=== PATIENT | female | born 2000 | race American Indian/Alaskan Native ===

== ENCOUNTER 2021-03-11 22:32 | Emergency (ER) | payer SELFPAY ==
[2021-03-11] MEDS ORDERED: TETANUS,DIPH,PERTUSS(ACELL) VACCINE 0.5 ML SYRINGE IM ONE (23:04)
[2021-03-11] MEDS ORDERED: IBUPROFEN 600 MG TAB PO ONE (23:04)
[2021-03-11] MEDS ORDERED: LIDOCAINE-MPF (1%) 10 MG/1 ML VIAL 5 ML INFILTRATI ONE (23:05)
--- NOTE | 2021-03-11 23:26 | XRay Report ---
LEFT FOOT 3 VIEWS INDICATION / CLINICAL INFORMATION: laceration COMPARISON: None available. FINDINGS: BONES / JOINT(S): No acute fracture or subluxation. No significant arthritis. SOFT TISSUES: Soft tissue injury at the dorsum of the foot distally. No radiopaque foreign body. ADDITIONAL FINDINGS: None. Signer Name: Mervin Baker MD Signed: 03/11/2021 11:21 PM Workstation Name: [id number]
[2021-03-12] MEDS ORDERED: ONDANSETRON 4 MG ODT TAB PO ONE (01:45)
[2021-03-12] MEDS ORDERED: oxyCODONE /ACETAMINOPHEN 5-325MG TAB PO ONE (01:45)
--- NOTE | 2021-03-12 01:50 | Emergency Department Report ---
ED Lower Extremity HPI - General Chief Complaint: Wound/Laceration Stated Complaint: (L) FOOT CUT OPEN Source: patient Mode of arrival: Ambulatory Limitations: No Limitations - History of Present Illness Initial Comments: Patient is a 20-year-old -[place] female with no past medical history presents to the ED with complaint of acute onset persistent severe dorsal left f oot pain with bleeding laceration after top of a can accidentally cut her dorsal left foot when she passed by the crown that was protruding from a piece of trash bag about 1 hour ago. Patient states that she is not up-to-date with tetanus vaccinations. Patient states that the pain is especially worse with ambulation and that the bleeding is well controlled at this time. Patient denies numbness and tingling or weakness of left foot, dizziness, syncope, fall, heavy lifting, low back pain, chest pain or shortness of breath MD Complaint: foot injury (Dorsal left foot laceration ) -: Sudden, hour(s) (1) Injury: Foot: Left (dorsal left foot laceration) Type of Injury: laceration (Dorsal left foot) Place: home Severity: severe Severity scale (0 -10): 7 Improves With: nothing Worsens With: weight bearing, movement, palpation Context: walking Associated Symptoms: able to partially bear weight. denies: snap/pop sensation, swelling, numbness, tingling, unable to bear weight, ambulatory - Related Data Previous Rx's Medication Instructions Recorded Last Taken Type Ibuprofen [Motrin] 800 mg PO Q8HR PRN #30 tablet 03/12/21 Unknown Rx cephALEXin [Keflex] 500 mg PO Q8HR #30 cap 03/12/21 Unknown Rx traMADoL [Ultram] 50 mg PO Q6HR PRN #10 tablet 03/12/21 Unknown Rx Allergies Allergy/AdvReac Type Severity Reaction Status Date / Time metronidazole [From Flagyl] Allergy Unknown Verified 03/11/21 22:37 ED Review of Systems ROS: Stated complaint: (L) FOOT CUT OPEN Other details as noted in HPI Constitutional: denies: chills, fever Eyes: denies: eye pain, eye discharge, vision change ENT: denies: ear pain, throat pain Respiratory: denies: cough, shortness of breath, wheezing Cardiovascular: denies: chest pain, palpitations Endocrine: no symptoms reported Gastrointestinal: denies: abdominal pain, nausea, diarrhea Genitourinary: denies: urgency, dysuria, discharge Musculoskeletal: arthralgia (Left foot pain due to bleeding dorsal left foot laceration wound). denies: back pain, joint swelling Skin: other (Bleeding laceration wound on left dorsal foot). denies: rash, lesions Neurological: denies: headache, weakness, paresthesias Psychiatric: denies: anxiety, depression Hematological/Lymphatic: denies: easy bleeding, easy bruising ED Past Medical Hx - Past Medical History Previous Medical History?: No - Surgical History Past Surgical History?: Yes Additional Surgical History: c section - Social History Smoking Status: Never Smoker Substance Use Type: None - Medications Home Medications: Home Medications Medication Instructions Recorded Confirmed Last Taken Type Ibuprofen [Motrin] 800 mg PO Q8HR PRN #30 tablet 03/12/21 Unknown Rx cephALEXin [Keflex] 500 mg PO Q8HR #30 cap 03/12/21 Unknown Rx traMADoL [Ultram] 50 mg PO Q6HR PRN #10 tablet 03/12/21 Unknown Rx ED Physical Exam - General Limitations: No Limitations General appearance: alert, in no apparent distress - Head Head exam: Present: atraumatic, normocephalic, normal inspection - Eye Eye exam: Present: normal appearance, PERRL, EOMI Pupils: Present: normal accommodation - ENT ENT exam: Present: normal exam, normal orophraynx, mucous membranes moist, TM's normal bilaterally, normal external ear exam - Neck Neck exam: Present: normal inspection, full ROM - Respiratory Respiratory exam: Present: normal lung sounds bilaterally. Absent: respiratory distress, wheezes, rales, rhonchi, chest wall tenderness, accessory muscle use, decreased breath sounds - Cardiovascular Cardiovascular Exam: Present: regular rate, normal rhythm, normal heart sounds. Absent: systolic murmur, diastolic murmur, rubs, gallop - GI/Abdominal GI/Abdominal exam: Present: soft, normal bowel sounds. Absent: tenderness, guarding, rebound, hyperactive bowel sounds, hypoactive bowel sounds, organomegaly, bruit - Extremities Exam Extremities exam: Present: normal inspection, full ROM, tenderness (Palpable dorsal left foot tenderness due to a bleeding 4 cm laceration wound), normal capillary refill. Absent: pedal edema, joint swelling, calf tenderness - Back Exam Back exam: Present: normal inspection, full ROM. Absent: tenderness, muscle spasm, paraspinal tenderness, vertebral tenderness - Neurological Exam Neurological exam: Present: alert, oriented X3, CN II-XII intact, normal gait, reflexes normal - Psychiatric Psychiatric exam: Present: normal affect, normal mood, anxious - Skin Skin exam: Present: warm, dry, intact, normal color, other (Bleeding 4 cm laceration wound on dorsal left foot with localized tenderness). Absent: rash ED Course Vital Signs 03/11/21 22:40 Temperature 98 F Pulse Rate 63 Respiratory 20 Rate Blood Pressure 149/86 [Right] O2 Sat by Pulse 99 Oximetry - Laceration /Wound Repair Left Dorsal Foot Wound Location: lower extremity (Dorsal left foot laceration wound) Wound Length (cm): 4 Wound's Depth, Shape: superficial, linear Wound Explored: contaminated Irrigated w/ Saline (ccs): 400 Betadine Prep?: Yes Anesthesia: 1% Lidocaine Volume Anesthetic (ccs): 5 Wound Debrided: extensive Wound Repaired With: sutures Suture Size/Type: 3:0, proline Number of Sutures: 10 Layer Closure?: No Sterile Dressing Applied?: Yes Progress: The wound was extensively cleaned with normal saline and Betadine solutions. The wound was then anesthetized with lidocaine 1% solution, for a total of 5 cc. Once anesthesia was fully achieved, the wound was sutured per protocol using Prolene 3-0 sutures. Patient tolerated the procedure well. On reevaluation, patient is neurovascularly intact on the left foot. The wound was then dressed appropriately with 4 x 4 gauze and Kerlix gauze. Patient was thereafter discharged home on pain medications and oral antibiotics and was advised to return to the ED immediately if symptoms get worse, otherwise follow-up with primary care physician in 7 to 10 days for reevaluation, or return to the ED or to the primary care physician in 12 to 14 days for suture removal ED Lower Extremity MDM - Radiology Data Radiology results: report reviewed, image reviewed [facility] [address] [place] [address] XRay Report Signed Patient: ADRIANNA CISNEROS MR#: [id number] : 2000 Acct:[id number] Age/Sex: 20 / F ADM Date: 03/11/21 Loc: ED Attending Dr: Ordering Physician: GAGE LOVE DO Date of Service: 03/11/21 Procedure(s): XR foot 3+V LT Accession Number(s): [id number] cc: DO Zeenat FLORES Time In Minutes: LEFT FOOT 3 VIEWS INDICATION / CLINICAL INFORMATION: laceration COMPARISON: None available. FINDINGS: BONES / JOINT(S): No acute fracture or subluxation. No significant arthritis. SOFT TISSUES: Soft tissue injury at the dorsum of the foot distally. No radiopaque foreign body. ADDITIONAL FINDINGS: None. Signer Name: Mervin Baker MD Signed: 03/11/2021 11:21 PM Workstation Name: [id number] Transcribed By: ES Dictated By: Mervin Baker MD Electronically Authenticated By: Mervin Baker MD Signed Date/Time: 03/11/212320 DD/ 18 TD/TT: - Medical Decision Making This is a 20-year-old -[place] female with no past medical history presents to the ED with complaint of acute onset persistent severe dorsal left foot pain with bleeding laceration after top of a can accidentally cut her dorsal left foot when she passed by the crown that was protruding from a piece of trash bag about 1 hour ago. Patient states that she is not up-to-date with tetanus vaccinations. Patient states that the pain is especially worse with ambulation and that the bleeding is well controlled at this time. In the ED, patient is alert and oriented x3 and is not in any distress but appears to be in significant pain, crying during the physical exam. Patient was treated for pain in the ED and also given booster tetanus vaccinations. Left foot x-ray showed no acute fractures or subluxations or presence of any foreign bodies within the tissues. The wound was extensively cleaned with normal saline and Betadine solutions. The wound was then anesthetized with lidocaine 1% solution, for a total of 5 cc. Once anesthesia was fully achieved, the wound was sutured per protocol using Prolene 3-0 sutures. Patient tolerated the procedure well. On reevaluation, patient is neurovascularly intact on the left foot. The wound was then dressed appropriately with 4 x 4 gauze and Kerlix gauze. Patient was thereafter discharged home on pain medications and oral antibiotics and was advised to return to the ED immediately if symptoms get worse, otherwise follow- up with primary care physician in 7 to 10 days for reevaluation, or return to the ED or to the primary care physician in 12 to 14 days for suture removal. - Differential Diagnosis Laceration; puncture wound; abrasion; foot contusion Critical care attestation.: If time is entered above; I have spent that time in minutes in the direct care of this critically ill patient, excluding procedure time. ED Disposition Clinical Impression: Laceration of dorsum of left foot Contusion of left foot including toes Qualifiers: Encounter type: initial encounter Qualified Code(s): S90.32XA - Contusion of left foot, initial encounter Disposition: HOME / SELF CARE / HOMELESS Is pt being admited?: No Does the pt Need Aspirin: No Condition: Stable Instructions: Foot Contusion, [id number], Laceration Care, Adult, [id number], Sutures, [place], or Adhesive Wound Closure, [id number] Additional Instructions: The left foot x-ray showed no acute fractures or subluxations. Therefore take pain medications as advised with food, drink plenty of fluids, take the pro phylactic antibiotics until finished. Follow-up with your primary care physician in 7 to 10 days for reevaluation. Return to the ED immediately if symptoms get worse. Otherwise return to the ED or to your primary care physician in 12 to 14 days for suture removal. Prescriptions: cephALEXin [Keflex] 500 mg PO Q8HR #30 cap Ibuprofen [Motrin] 800 mg PO Q8HR PRN #30 tablet PRN Reason: Pain , Severe (7-10) traMADoL [Ultram] 50 mg PO Q6HR PRN #10 tablet PRN Reason: Pain Referrals: [facility] [Provider Group] - 7-10 days Forms: Work/School Release Form(ED) Time of Disposition: 01:56 Print Language: MONGOLIAN
[2021-03-12 02:27] VITALS: BP 149/86
== END 2021-03-12 02:27 | disposition home or self-care (01) ==
LOC: ED 22:32
DX: S91.312A Laceration without foreign body, left foot, initial encounter (principal); S90.32XA Contusion of left foot, initial encounter; Z88.8 Allergy status to other drugs, medicaments and biological substances; Z79.899 Other long term (current) drug therapy; Z98.890 Other specified postprocedural states; W26.0XXA Contact with knife, initial encounter; Y93.89 Activity, other specified; Y92.009 Unspecified place in unspecified non-institutional (private) residence as the place of occurrence of the external cause; Y99.8 Other external cause status
CPT/HCPCS: 90715